=== PATIENT | female | born 1995 | race Caucasian/White ===

== ENCOUNTER 2022-02-08 09:41 | Emergency (ER) | payer BC, OTHER ==
[2022-02-08] MEDS ORDERED: Sodium Chloride 0.9% 10 ML Syringe FLUSH PRN (10:07)
== END 2022-02-08 13:30 | disposition home or self-care (01) ==
LOC: JD.ED 09:41
DX: O20.9 Hemorrhage in early pregnancy, unspecified (principal); Z3A.11 11 weeks gestation of pregnancy
CPT/HCPCS: 36415; 76817; 81001; 81025; 84702; 85025; 86900; 86901; 99284; J3490